=== PATIENT | female | born 1960 | race Two or more races ===

== ENCOUNTER 2024-10-19 18:04 | Emergency (ER) | payer MEDICAID, SELFPAY ==
[2024-10-19 18:24] VITALS: BP 132/80; PULSE 78; RESP 18; TEMP 37.9; O2SAT 96; BMI 32.9
--- NOTE | 2024-10-19 18:32 | EKG_ITS ---
[facility], [place] Test Date: 2024-10-19 Pat Name: JENNIFER SAVAGE Department: Room: - Gender: Female Build Technician: : 1960 Requested By: Atilio Gao Order Number: [id number] Reading MD: Atilio Gao Measurements Intervals [place] Rate: 80 P: 30 OK: 160 QRS: -19 QRSD: 77 T: 54 QT: 333 QTc: 385 Interpretive Statements SINUS RHYTHM No previous ECG available for comparison /store/S0/[id number]/ecg/[id number].pdf
--- NOTE | 2024-10-19 18:38 | PD.EDRME ---
Rapid Medical Screening Exam RME Arrival date/time: 10/19/24 18:04 64 year old female present to ED for c/o of bodyaches, fever, for 6 days I have greeted and performed a focused initial assessment of this patient. A comprehensive ED assessment and evaluation of the patient, analysis of all test results, and completion of the medical decision making process will be conducted by additional ED providers. Chief Complaint: Fever Time Seen by Provider: 10/19/24 18:39 Vital signs: Vital Signs Temperature 100.2 F 10/19/24 18:24 Pulse Rate 78 10/19/24 18:24 Respiratory Rate 18 10/19/24 18:24 Blood Pressure 132/80 H 10/19/24 18:24 Pulse Oximetry (%) 96 10/19/24 18:24 Oxygen Delivery Method Room Air 10/19/24 18:24
--- NOTE | 2024-10-19 18:41 | XR_ITS ---
Examination: PA lateral chest 2 views TECHNIQUE: Upright PA and lateral chest 2 views Exam daytime: October 19, 2024 1911 hours INDICATIONS: Fever body ache beginning 3 days ago FINDINGS: Retrocardiac gastric hernia No pneumonia or pulmonary edema. Intact osseous structures IMPRESSION: No pneumonia or pulmonary edema
[2024-10-19] MEDS: ACETAMINOPHEN 500 MG TABLET 1000 MG PO (18:43)
[2024-10-19 19:05] LABS: Basophils % (Auto) 0 % (0-2.5); Eosinophils # (Auto) 0.1 Thou/mm3 (0.0-0.5); Eosinophils % (Auto) 1 % (0-10); Hematocrit 29.4 % (36.0-46.0); Hemoglobin 9.5 g/dL (12.0-16.0); Immature Granulocytes % (Auto) 0 % (0-0); Immature Granulocytes Auto 0.02 Thou/mm3 (0.00-0.00); Lymphocytes # (Auto) 1.1 Thou/mm3 (1.0-4.8); Lymphocytes % (Auto) 10 % (10-50); Mean Corpuscular HGB Conc 32.3 g/dl (31.0-37.0); Mean Corpuscular Hemoglobin 25.1 pg (25.0-35.0); Mean Corpuscular Volume 78 fL (80-100); Monocytes # (Auto) 0.9 Thou/mm3 (0.0-0.8); Monocytes % (Auto) 8 % (0-12); Neutrophils # (Auto) 8.2 Thou/mm3 (1.8-7.7); Neutrophils % (Auto) 79 % (37-80); Nucleated Red Blood Cell % 0 /100 WBC (0); Platelet Count 399 Thou/mm3 (140-440); RDW Standard Deviation 42.6 fL (36.4-46.3); Red Blood Count 3.79 Miln/mm3 (4.00-5.20); White Blood Count 10.3 Thou/mm3 (3.6-11.0)
[2024-10-19 19:12] LABS: Alanine Aminotransferase 49 U/L (10-49); Albumin, Serum 4.1 gm/dL (3.4-4.8); Albumin/Globulin Ratio 1.3 (1.2-2.2); Alkaline Phosphatase 138 U/L (46-116); Anion Gap 7 (7-16); Aspartate Amino Transferase 37 U/L (0-34); BUN/Creatinine Ratio 17 Ratio (12-20); Bilirubin,Total 0.3 mg/dL (0.3-1.2); Blood Urea Nitrogen 15 mg/dL (9-23); Calcium 9.4 mg/dL (8.3-10.6); Calcium (Corrected) 9.4 mg/dL (8.5-10.1); Carbon Dioxide 26.2 mMol/L (20.0-31.0); Chloride 103 mMol/L (98-107); Creatinine (Component) 0.9 mg/dL (0.6-1.3); Estimated Creatinine Clearance 61.7 mL/min (>60); Globulin 3.1 gm/dL (2.3-3.5); Glucose 145 mg/dL (74-106); Lipase 34 U/L (12-53); Osmolality,Calculated 275 (275-295); Potassium 4.7 mMol/L (3.4-5.1); Sodium 136 mMol/L (136-145); Total Protein 7.2 gm/dL (5.7-8.2); Troponin I < 0.002 ng/mL (0.0-0.045); eGFR > 60 See Note
[2024-10-19 19:25] LABS: Collection Type, Urine Voided
[2024-10-19 19:30] VITALS: BP 114/66; PULSE 85; RESP 19; TEMP 37.4; O2SAT 98
[2024-10-19 19:30] LABS: Bilirubin,Urine Negative (Negative); Blood,Urine 1+ (Negative); Clarity,Urine Clear (Clear/Hazy); Color,Urine Lt-Yellow (Lt Yel-Yel); Glucose, Urine Negative (Negative); Ketones,Urine Negative (Negative); Leukocyte Esterase,Urine Negative (Negative); Nitrite,Urine Negative (Negative); PH,Urine 6.5 (5.0-7.0); Protein,Urine Trace (Neg - Trace); RBC,Urine 13 /hpf (0-3); Squamous Epithelial Cell,Urine 1 /hpf (0-5); Urobilinogen,Urine Negative mg/dL (0.0-1.0); WBC,Urine 3 /hpf (0-5)
--- NOTE | 2024-10-19 20:12 | PC.NURSE ---
Initial contact with pt, Dr. Rahman in room seeing pt.
[2024-10-19 20:36] VITALS: BP 112/72; PULSE 70; RESP 18; TEMP 37.3; O2SAT 96
[2024-10-19] MEDS: MECLIZINE HCL 25 MG TABLET PO (20:38)
[2024-10-19] MEDS: OXYMETAZOLINE NAS SPRY 0.05% 15 ML BTL NASAL (20:39)
[2024-10-19] MEDS: SODIUM CHLORIDE 0.9% 1000 ML 1,000 ML 999 ML IV (21:05)
--- NOTE | 2024-10-19 21:19 | EDNOTE_ITS ---
ED Ear RME/HPI General Chief complaint: Fever Stated complaint: FEVER, SORE THROAT, EARACHE SINCE 10/14 Time Seen by Provider: 10/19/24 18:39 Source: patient Arrival date/time: 10/19/24 18:04 Mode of arrival: ambulatory Limitations: no limitations RME / HPI RME / HPI Narrative: 10/19/24 18:04 64 year old female present to ED for c/o of bodyaches, fever, for 6 days I have greeted and performed a focused initial assessment of this patient. A comprehensive ED assessment and evaluation of the patient, analysis of all test results, and completion of the medical decision making process will be conducted by additional ED providers. LDr. Rahman?s Main ED Evaluation: 64-year-old female with history of solitary kidney presenting to the emergency department with 2 to 4 days of bilateral ear clear discharge and 6 days of generalized bodyaches, and subjective fever. The patient states that she was taking Tylenol for the body aches and it did not get better. She feels her ear is and nose are congested. Today she noticed that the right ear is draining slightly clear discharge but she is having more pain dull ache in the right ear. Patient denies any vomiting but is having nausea. Patient is complaining of lightheadedness but is able to ambulate. No neck pain, photophobia, and complains of mild headache after coughing. Past medical history: Donated left kidney to family member. Related Data Previous Rx's ?Medication ?Instructions ?Recorded amoxicillin 875 mg-potassium 1 tab PO BID #20 tabs clavulanate 125 mg tablet fluticasone propionate 50 1 spray intranasal BID 7 day s #16 10/19/24 mcg/actuation nasal grams spray,suspension (Flonase Allergy Relief) loratadine 10 mg tablet (Claritin) 10 mg PO QDAY 10 da ys #10 tabs 10/19/24 Allergies Allergy/AdvReac Type Severity Reaction Status Date / Time No Known Allergies Allergy Verified 10/19/24 18:08 Review of Systems Review of Systems Systems Reviewed: All systems reviewed, normal except as documented Past Medical History Social History SMOKING STATUS: Never smoker ED Exam Narrative Physical exam: Physical Examination GEN. APPEARANCE: The patient is alert awake oriented X-3 in mild distress, lying down comfortably, does not look ill/toxic. Patient has good eye contact. Patient is cooperative. HEENT: R> Left external canal slight swollen, Bubbly fluid in front of Right tympanic membrane, unable to visualize the left TM. No bilateral mastoid erythema or tenderness. NECK: Supple, nontender, no thyromegaly, no meningismus CHEST: Symmetrical, atraumatic, and with equal expansion , Nontender on palpation no deformity and no crepitus. CARDIOVASCULAR: Heart regular rhythm no murmur or gallop rub or extra beats. LUNGS: Clear to auscultation bilaterally with symmetrical chest rise. No laboring tachypnea or wheezing. No intercostal subcostal retraction. No rales and no rhonchi. ABDOMEN: Soft, flat, nontender to palpation, no guarding or rebound tenderness. There are no abnormal masses palpated. Active and normal bowel sounds. EXTREMITIES: Nontender. No edema. No cyanosis. Patient is able to move all 4 extremities well, with full ROM and good CSM. SKIN: Warm and dry, no jaundice or rashes noted. MUSCULOSKELETAL: There is no CVA tenderness. No paraspinal muscle spasm or tenderness. NEURO: Patient is WONG x 4, Cranial nerves II through XII grossly intact. There is no focal neurologic deficits noted. GCS is 15, PNS and [employer]IL [employer] appear grossly intact. PSYCHIATRIC: Patient admits to thoughts of self harm. No SI or HI or hallucinations. General Limitations: Present no limitations Course Course Course Narrative: CXR is ordered for determining etiology of fever. Quality Measures none Orders Category Date Time Status Bedside Influenza A&B Antigen Test NOW Care 10/19/24 18:32 Completed EKG (ED ONLY) *Do not use* NOW Care 10/19/24 18:32 Completed IV [Insert IV] NOW Care 10/19/24 21:03 Active EKG (ED Only) Stat Exams 10/19/24 18:32 Draft XR chest 2V Stat Exams 10/19/24 18:41 Completed CBC Stat Lab 10/19/24 18:45 Completed CMP [Comprehensive Metabolic Panel] Stat Lab 10/19/24 18:45 Completed Lipase Stat Lab 10/19/24 18:45 Completed Troponin I Stat Lab 10/19/24 18:45 Completed UA [Urinalysis] Stat Lab 10/19/24 19:21 Completed Acetaminophen Tab [Tylenol ES Tab] Med 10/19/24 18:33 Discontinued 1,000 mg PO X1 ONE Amoxicillin/Pot Clav 875 [Augmentin 875] Med 10/19/24 21:16 Discontinued 1 tab PO X1 ONE Meclizine HCl [Antivert] Med 10/19/24 20:15 Discontinued 25 mg PO X1 ONE Morphine Inj Med 10/19/24 21:18 Discontinued 2 mg IVP X1 ONE Ondansetron Odt [Zofran Odt] Med 10/19/24 18:33 Discontinued 4 mg PO X1 ONE Oxymetazoline Ramin Corbin 0.05% [Afrin Nasal [place]] Med 10/19/24 20:15 Discontinued See Dose Instructions NASAL X1 ONE Sodium Chloride 0.9% 1000 ml [Ns] 1,000 ml Med 10/19/24 20:15 Discontinued IV 999 mls/hr lorataDINE [Claritin] Med 10/19/24 21:18 Discontinued 10 mg PO X1 ONE Vital Signs Vital signs: Vital Signs Temperature 100.2 F 10/19/24 18:24 Pulse Rate 78 10/19/24 18:24 Respiratory Rate 18 10/19/24 18:24 Blood Pressure 132/80 H 10/19/24 18:24 Pulse Oximetry (%) 96 10/19/24 18:24 Oxygen Delivery Method Room Air 10/19/24 18:24 Ear MDM Narrative MDM Narrative:: 64-year-old female with history of solitary kidney presents with possible right- sided otitis. She reports ear pain, clear drainage, congestion, body aches, and lightheadedness. EKG taken at 1838, personally interpreted, shows normal sinus rhythm with a rate of 80 bpm, no ST elevations or depressions, a normal QTc of 385 ms; overall impression is a normal EKG. CXR shows no pneumonia or pulmonary edema Patient found to have bilateral acute otitis media, otitis media. Stable for discharge. Antibiotics prescribed and patient was instructed to complete the full course as directed. Advised to follow up with primary care within 48 hours for reassessment. May use [id number] Tylenol 650 mg as needed for pain for the next 3?5 days. Return precautions reviewed, including worsening pain, inability to tolerate fluids, persistent fever despite Tylenol, or any other concerns. Advised to keep ears dry and avoid water exposure during bathing. Scribe Attestation: Reagan Funez, am scribing for and in the presence of Dr. Rahman. Provider Notation: Although this document has been carefully reviewed, there may still be some phonetic and other typographical errors. These errors are purely grammatical due to imperfections in the software program and should not be construed in any way to compromise the substance of the patient's medical care during this visit. Patient data External records reviewed:: [facility] previous records Clinical information provided by:: patient Social determinants that could affect healthcare access:: none Patient has the following chronic illnesses:: see PMH How is presenting disease/condition affected by chronic disease/condition?: u neffected by Evaluation data The following diagnostics were reviewed and interpreted by me:: lab results, radiology exam(s) and EKG tracing(s) Lab and/or radiology exams considered but not ordered:: n/a Interpretation Summary: I personally reviewed the radiology data and agree with the radiologist's interpretation. Examination: PA lateral chest 2 views TECHNIQUE: Upright PA and lateral chest 2 views Exam daytime: October 19, 2024 1911 hours INDICATIONS: Fever body ache beginning 3 days ago FINDINGS: Retrocardiac gastric hernia No pneumonia or pulmonary edema. Intact osseous structures IMPRESSION: No pneumonia or pulmonary edema Dictated By: Kenney العلي MD Medications / Prescriptions Medications or Prescriptions considered but not ordered:: n/a Medication administrations:: Medication Administration History Discontinued Medications Acetaminophen (Acetaminophen 500 Mg Tablet) 1,000 mg PO X1 ONE Stop: 10/19/24 18:34 Last Admin: 10/19/24 18:43 Dose: 1,000 mg Documented By: GARRETT Amoxicillin/Clavulanate Potassium (Amoxicillin/Pot Clav 875 Tablet) 1 tab PO X1 ONE Stop: 10/19/24 21:17 Last Admin: 10/19/24 21:30 Dose: 1 tab Documented By: PRICILLA Sodium Chloride (Ns) 1,000 mls @ 999 mls/hr IV .Q1H1M ONE Stop: 10/19/24 21:15 Last Infusion: 10/19/24 22:06 Dose: Infused Documented By: Admin: 10/19/24 21:05 Dose: 999 mls/hr Documented By: PRICILLA Loratadine (Loratadine 10 Mg Tablet) 10 mg PO X1 ONE Stop: 10/19/24 21:19 Last Admin: 10/19/24 21:30 Dose: 10 mg Documented By: PRICILLA Meclizine HCl (Meclizine Hcl 25 Mg Tablet) 25 mg PO X1 ONE Stop: 10/19/24 20:16 Last Admin: 10/19/24 20:38 Dose: 25 mg Documented By: PRICILLA Morphine Sulfate (Morphine Sulf Inj 10 Mg/Ml Vial) 2 mg IVP X1 ONE Stop: 10/19/24 21:19 Last Admin: 10/19/24 21:33 Dose: Not Given Documented By: PRICILLA Non-Admin Reason: Patient Refused Ondansetron HCl (Ondansetron Odt 4 Mg Tabrap) 4 mg PO X1 ONE; Protocol Stop: 10/19/24 18:34 Last Admin: 10/19/24 18:45 Dose: Not Given Documented By: GARRETT Non-Admin Reason: Cancelled by Provider Oxymetazoline HCl (Oxymetazoline Ramin Corbin 0.05% 15 Ml Btl) 0 spray NASAL X1 ONE Stop: 10/19/24 20:16 Last Admin: 10/19/24 20:39 Dose: 1 nsinhaler Documented By: PRICILLA as above, if any Consultations Consultation(s) initiated? (list below): No Diagnosis Ear Differential Diagnosis: otitis externa, otitis media, foreign body in ear, ruptured TM and cerumen impaction Most likely diagnosis given after review of the tests above:: see clinical impression below Admission Indicated Admission indicated?: not indicated Admission Request Was there a request for admission?: No Disposition Plan Disposition Plan: Discharge Discharge Attestation Discharge Attestation: The patient and all family members were given an opportunity to ask questions and understood the discharge instructions. Discharge instructions specifically effects, indications for sooner follow up or return to the emergency department, and the expected course of current diagnosis. Patient condition: Stable Medical Decision Making MDM Narrative MDM Narrative: as above Differential Diagnosis Differential Diagnosis: as above Medical Records Medical records reviewed: Yes I reviewed the patient's medical records. Lab Data Lab results reviewed: Yes I reviewed the patient's lab results. 10/19/24 18:45 10/19/24 18:45 Labs: Lab Results 10/19/24 10/19/24 Range/Units 18:45 19:21 WBC 10.3 (3.6-11.0) Thou/mm3 RBC 3.79 L (4.00-5.20) Miln/mm3 Hgb 9.5 L (12.0-16.0) g/dL Hct 29.4 L (36.0-46.0) % MCV 78 L (80-100) fL MCH 25.1 (25.0-35.0) pg MCHC 32.3 (31.0-37.0) g/dl RDW Std Deviation 42.6 (36.4-46.3) fL Plt Count 399 (140-440) Thou/mm3 Neut % (Auto) 79 (37-80) % Lymph % (Auto) 10 (10-50) % [place] % (Auto) 8 (0-12) % Eos % (Auto) 1 (0-10) % Baso % (Auto) 0 (0-2.5) % Neut # (Auto) 8.2 H (1.8-7.7) Thou/mm3 Lymph # (Auto) 1.1 (1.0-4.8) Thou/mm3 [place] # (Auto) 0.9 H (0.0-0.8) Thou/mm3 Eos # (Auto) 0.1 (0.0-0.5) Thou/mm3 Baso # (Auto) 0.0 (0.0-0.2) Thou/mm3 Immature Gran # (Auto) 0.02 H (0.00-0.00) Thou/mm3 Absolute Nucleated RBC 0.00 (0.00-0.00) Thou/mm3 Immature Gran % 0 (0-0) % Nucleated RBC % 0 (0) /100 WBC Sodium 136 (136-145) mMol/L Potassium 4.7 (3.4-5.1) mMol/L Chloride 103 (98-107) mMol/L Carbon Dioxide 26.2 (20.0-31.0) mMol/L Anion Gap 7 (7-16) BUN 15 (9-23) mg/dL Creatinine 0.9 (0.6-1.3) mg/dL Estim Creat Clear Calc 61.7 (>60) mL/min eGFR > 60 (60 - ) See Note BUN/Creatinine Ratio 17 (12-20) Ratio Glucose 145 H (74-106) mg/dL Calculated Osmolality 275 (275-295) Calcium 9.4 (8.3-10.6) mg/dL Corrected Calcium 9.4 (8.5-10.1) mg/dL Total Bilirubin 0.3 (0.3-1.2) mg/dL AST 37 H (0-34) U/L ALT 49 (10-49) U/L Alkaline Phosphatase 138 H (46-116) U/L Troponin I < 0.002 (0.0-0.045) ng/mL Total Protein 7.2 (5.7-8.2) gm/dL Albumin 4.1 (3.4-4.8) gm/dL Globulin 3.1 (2.3-3.5) gm/dL Albumin/Globulin Ratio 1.3 (1.2-2.2) Lipase 34 (12-53) U/L Ur Collection Type Voided Urine Color Lt-Yellow (Lt Yel-Yel) Urine Clarity Clear (Clear/Hazy) Urine pH 6.5 (5.0-7.0) Ur Specific [place] 1.020 (1.001-1.035) Urine Protein Trace (Neg - Trace) Urine Glucose (UA) Negative (Negative) Urine Ketones Negative (Negative) Urine Blood 1+ A (Negative) Urine Nitrite Negative (Negative) Urine Bilirubin Negative (Negative) Urine Urobilinogen (Auto) Negative (0.0-1.0) mg/dL Ur Leukocyte Esterase Negative (Negative) Urine RBC 13 H (0-3) /hpf Urine WBC 3 (0-5) /hpf Ur Squamous Epith Cells 1 (0-5) /hpf Urine Bacteria None (None) Radiology Data Radiology results reviewed: Yes I reviewed the patient's radiology results. Discharge Plan Plan Patient Disposition: HOME (Self Care) Patient condition on transfer: Stable Prescriptions/Referrals Prescriptions/Med Rec: New amoxicillin-pot clavulanate 875-125 mg tablet 1 tab PO BID Qty: 20 0RF loratadine [Claritin] 10 mg tablet 10 mg PO QDAY 10 Days Qty: 10 0RF fluticasone propionate [Flonase Allergy Relief] 50 mcg/actuation spray,suspension 1 spray intranasal BID 7 Days Qty: 16 0RF Rx Instructions: administer into each nostril Referrals: Rosalina Morgan MD [Primary Care Provider] - 10/22/24 Problem List Clinical Impression: Bilateral acute otitis media, Otitis media Patient/Caregiver Discharge Instructions Education Materials: ED Otitis Media Antibiotic ... Additional Instructions: 1. Please see the medications prescribed. You will need to complete the antibiotics as instructed. 2, Please follow-up with your primary care physician in the next 48 hours for recheck. 3, You can take [id number] Tylenol 650 mg use of the day for the next 3 to 5 days for pain. 4. Return to the emergency department before your appointment if you are unable to tolerate liquids, pain is increased, you have fever despite Tylenol, or any other concerns. 5. Please keep ears dry and do not let water get in them when you bathe. Print Language: Eritrean Stand Alone Forms: Marley Award Info., Patient Portal Info Letter
[2024-10-19] MEDS: AMOXICILLIN/POT CLAV 875 TABLET 1 TAB PO (21:30)
[2024-10-19] MEDS: lorataDINE 10 MG TABLET PO (21:30)
[2024-10-19 22:47] VITALS: BP 122/76; PULSE 77; RESP 18; TEMP 36.9; O2SAT 96
== END 2024-10-19 23:07 | disposition home or self-care (01) ==
PROVIDERS: Physician Assistant; Emergency Provider Emergency Medicine; PCP Obstetrics & Gynecology
DX: H66.93 Otitis media, unspecified, bilateral (principal); R42 Dizziness and giddiness; R50.9 Fever, unspecified; R52 Pain, unspecified
CPT/HCPCS: 36415; 71046; 80053; 81001; 83690; 84484; 85025; 87400; 93005; 96360; 99284; J7030; A9270